=== PATIENT | female | born 1990 | race Caucasian/White ===

== ENCOUNTER → 2019-09-01 | Outpatient (CLI) | payer OTHER ==
[~2019-09-01] MED LIST: ISOVUE-370 76% 100ML VIAL (Q9967) As Ordered ONE
--- NOTE | 2019-09-01 15:47 | REP ---
Hysterosalpingogram: History: Primary infertility. Technique: The injection procedure is performed by the attending cigar inspector. 0.3 minutes of fluoroscopy time is reported. Fluoroscopic spot radiographs are obtained. Findings: A normal endometrial cavity is visualized. Uterus is tipped to the right. There is prompt symmetric fill of the isthmic and ampullary segments of the fallopian tubes bilaterally and prompt symmetric bilateral peritoneal spillage is observed. No filling defect is seen in the endometrium. Impression: Normal hysterosalpingogram. Bilateral tubal patency is documented. Electronically Signed by Topher Erwin MD 09/01/2019 08:08 P
== END ==
LOC: M RADPRO 11:23
PROVIDERS: ATTEND Specialist
DX: N97.9 Female infertility, unspecified (principal)
CPT/HCPCS: 58340; 74740; Q9967

== ENCOUNTER → 2021-04-01 | Outpatient (REF) | payer OTHER ==
[2021-04-05 12:44] LABS: GC DNA AMPLIFICATION NEGATIVE (NEGATIVE)
== END ==
LOC: M SFHCWAGY 10:47
PROVIDERS: ATTEND Specialist
DX: Z12.4 Encounter for screening for malignant neoplasm of cervix (principal); Z20.2 Contact with and (suspected) exposure to infections with a predominantly sexual mode of transmission; Z77.9 Other contact with and (suspected) exposures hazardous to health

== ENCOUNTER → 2021-04-04 | Outpatient (CLI) | payer OTHER | LOC: M WHC 16:15 | PROVIDERS: ATTEND Specialist | DX: Z53.9 Procedure and treatment not carried out, unspecified reason (principal) ==

== ENCOUNTER → 2021-07-05 | Outpatient (REF) | payer BC ==
[2021-07-05 11:55] LABS: HEMATOCRIT 41.8 % (36.0-47.0); HEMOGLOBIN 13.6 g/dl (12.0-15.5); MEAN CORPUSCULAR HEMOGLOBIN 32.1 pg (27.0-33.0); MEAN CORPUSCULAR HGB CONC 32.5 g/dl (32.0-36.5); MEAN CORPUSCULAR VOLUME 98.6 fl (80.0-96.0); PLATELET COUNT, AUTOMATED 289 10^3/uL (150-450); RED BLOOD COUNT 4.24 10^6/uL (4.00-5.40); WHITE BLOOD COUNT 6.2 10^3/uL (4.0-10.0)
[2021-07-05 12:32] LABS: PROLACTIN 12.3 NG/ML
[2021-07-05 12:44] LABS: HEPATITIS B SURFACE ANTIGEN NEGATIVE (NEGATIVE)
[2021-07-05 13:11] LABS: HEPATITIS C VIRUS ABY INDEX 0.1 INDEX (<0.8)
[2021-07-05 14:08] LABS: GC DNA AMPLIFICATION NEGATIVE (NEGATIVE)
[2021-07-06 04:01] LABS: BLOOD UREA NITROGEN 9 MG/DL (7-18); CARBON DIOXIDE LEVEL 27 mmol/L (20-29); CHLORIDE LEVEL 110 MEQ/L (98-107); CREATININE FOR GFR 0.71 MG/DL (0.55-1.30); GLOMERULAR FILTRATION RATE > 60.0 (>60); GLUCOSE, FASTING 93 MG/DL (70-100); POTASSIUM SERUM 4.3 MEQ/L (3.5-5.1); SODIUM LEVEL 141 MEQ/L (136-145)
[2021-07-06 04:02] LABS: ALBUMIN 3.9 GM/DL (3.2-5.2); ALT/SGPT 14 IU/L (0-32); BILIRUBIN,TOTAL 0.6 MG/DL (0.2-1.0); CALCIUM LEVEL 9.2 MG/DL (8.5-10.1)
[2021-07-15 13:36] LABS: TESTOSTERONE FREE (DIRECT) 2.6 PG/ML
[2021-07-15 13:39] LABS: HERPES ZOSTER, VARICELLA IgG 1036 index
[2021-07-15 13:41] LABS: ANTI-SMOOTH MUSCLE ANTIBODY 5 units
[2021-07-15 13:42] LABS: ANTI MULLERIAN HORMONE SEE SEPARATE REPORT
== END ==
LOC: M PLALAB 08:48
PROVIDERS: ATTEND Specialist
DX: Z20.2 Contact with and (suspected) exposure to infections with a predominantly sexual mode of transmission (principal); N92.6 Irregular menstruation, unspecified; Z13.220 Encounter for screening for lipoid disorders

== ENCOUNTER → 2021-08-29 | Outpatient (CLI) | payer BC | LOC: M WHC 07:00 | PROVIDERS: ATTEND Specialist | DX: Z12.31 Encounter for screening mammogram for malignant neoplasm of breast (principal); Z84.81 Family history of carrier of genetic disease ==

== ENCOUNTER → 2022-09-18 | Outpatient (REF) | payer BC ==
[2022-09-18 17:27] LABS: HEMATOCRIT 43.6 % (36.0-47.0); HEMOGLOBIN 14.3 g/dl (12.0-15.5); MEAN CORPUSCULAR HEMOGLOBIN 32.2 pg (27.0-33.0); MEAN CORPUSCULAR HGB CONC 32.8 g/dl (32.0-36.5); MEAN CORPUSCULAR VOLUME 98.2 fl (80.0-96.0); PLATELET COUNT, AUTOMATED 266 10^3/uL (150-450); RED BLOOD COUNT 4.44 10^6/uL (4.00-5.40); WHITE BLOOD COUNT 8.2 10^3/uL (4.0-10.0)
[2022-09-18 17:50] LABS: FREE T4 1.01 NG/DL (0.89-1.76); THYROID STIMULATING HORMONE 1.783 uIU/ML (0.55-4.78)
[2022-09-18 17:54] LABS: ALBUMIN 4.4 G/DL (3.2-5.2); ALKALINE PHOSPHATASE 68 U/L (46-116); ALT/SGPT 11 U/L (7.0-40); AST/SGOT 11 U/L (<34); BILIRUBIN,TOTAL 0.9 MG/DL (0.3-1.2); BLOOD UREA NITROGEN 22 MG/DL (9-23); CARBON DIOXIDE LEVEL 28 MMOL/L (20-31); CHLORIDE LEVEL 104 MMOL/L (98-107); CHOLESTEROL LEVEL 163 MG/DL (<200); CHOLESTEROL RISK RATIO 2.17 (<5); CREATININE FOR GFR 0.59 MG/DL (0.55-1.30); GLOMERULAR FILTRATION RATE > 60.0 (>60); GLUCOSE, FASTING 78 MG/DL (60-100); LDL CHOLESTEROL 74.2 MG/DL (<100); POTASSIUM SERUM 4.6 MMOL/L (3.5-5.1); SODIUM LEVEL 138 MMOL/L (136-145); TOTAL PROTEIN 7.4 G/DL (5.7-8.2); TRIGLYCERIDES LEVEL 69 MG/DL (<150)
== END ==
LOC: M SFHCCLAY 10:55
PROVIDERS: ATTEND Nurse Practitioner Family
DX: F41.8 Other specified anxiety disorders (principal); J30.2 Other seasonal allergic rhinitis; Z13.220 Encounter for screening for lipoid disorders; R74.8 Abnormal levels of other serum enzymes; N97.0 Female infertility associated with anovulation

== ENCOUNTER → 2022-10-15 | Outpatient (REF) | payer BC | LOC: M LABDRAWC 11:09 | PROVIDERS: ATTEND Obstetrics & Gynecology Reproductive Endocrinology | DX: Z32.00 Encounter for pregnancy test, result unknown (principal) ==

== ENCOUNTER → 2022-11-04 | Outpatient (REF) | payer BC | LOC: M SFHCWAGY 13:25 | PROVIDERS: ATTEND Specialist | DX: Z01.419 Encounter for gynecological examination (general) (routine) without abnormal findings (principal) | CPT/HCPCS: 87624; G0123 ==

== ENCOUNTER → 2022-11-04 | Outpatient (CLI) | payer BC | LOC: M WHC 09:07 | PROVIDERS: ATTEND Specialist | DX: Z12.31 Encounter for screening mammogram for malignant neoplasm of breast (principal); Z80.3 Family history of malignant neoplasm of breast ==

== ENCOUNTER → 2022-11-19 | Outpatient (CLI) | payer BC | LOC: M WHC 08:52 | PROVIDERS: ATTEND Specialist | DX: Z12.31 Encounter for screening mammogram for malignant neoplasm of breast (principal); Z80.3 Family history of malignant neoplasm of breast | CPT/HCPCS: 76642; 77065; G0279 ==

== ENCOUNTER → 2022-11-19 | Outpatient (CLI) | payer BC | LOC: M WHC 08:36 | PROVIDERS: ATTEND Obstetrics & Gynecology Reproductive Endocrinology | DX: Z31.83 Encounter for assisted reproductive fertility procedure cycle (principal) ==

== ENCOUNTER → 2022-11-19 | Outpatient (CLI) | payer BC ==
[2022-11-19 13:10] LABS: LUTEINIZING HORMONE 3.4 mIU/ML
[2022-11-19 13:11] LABS: ESTRADIOL 100.2 PG/ML
[2022-11-19 13:13] LABS: PROGESTERONE < 0.21 NG/ML
== END ==
LOC: M PLALAB 11:13
PROVIDERS: ATTEND Obstetrics & Gynecology Reproductive Endocrinology
DX: Z31.83 Encounter for assisted reproductive fertility procedure cycle (principal)

== ENCOUNTER → 2022-11-21 | Outpatient (CLI) | payer BC ==
[2022-11-21 10:06] LABS: ESTRADIOL 109.4 PG/ML; PROGESTERONE < 0.21 NG/ML
== END ==
LOC: M PLALAB 07:53
PROVIDERS: ATTEND Obstetrics & Gynecology Reproductive Endocrinology
DX: Z31.83 Encounter for assisted reproductive fertility procedure cycle (principal)

== ENCOUNTER → 2022-11-21 | Outpatient (CLI) | payer BC | LOC: M WHC 09:35 | PROVIDERS: ATTEND Obstetrics & Gynecology Reproductive Endocrinology | DX: Z31.83 Encounter for assisted reproductive fertility procedure cycle (principal) ==

== ENCOUNTER → 2022-11-26 | Outpatient (CLI) | payer BC ==
[2022-11-26 13:36] LABS: ESTRADIOL 125.6 PG/ML
[2022-11-26 13:37] LABS: PROGESTERONE 3.46 NG/ML
== END ==
LOC: M PLALAB 09:10
PROVIDERS: ATTEND Obstetrics & Gynecology Reproductive Endocrinology
DX: Z31.83 Encounter for assisted reproductive fertility procedure cycle (principal)

== ENCOUNTER → 2022-12-10 | Outpatient (REF) | payer BC ==
[2022-12-10 11:34] LABS: HCG, SERUM QUANTITATIVE < 2.6 MIU/ML (<4.2)
[2022-12-10 11:39] LABS: PROGESTERONE 13.39 NG/ML
== END ==
LOC: M LABDRAWC 10:56
PROVIDERS: ATTEND Obstetrics & Gynecology Reproductive Endocrinology
DX: Z32.00 Encounter for pregnancy test, result unknown (principal)

== ENCOUNTER → 2022-12-17 | Outpatient (CLI) | payer BC ==
[2022-12-17 11:33] LABS: HCG, SERUM QUANTITATIVE < 2.6 MIU/ML (<4.2)
[2022-12-17 11:36] LABS: THYROID STIMULATING HORMONE 1.243 uIU/ML (0.55-4.78)
[2022-12-17 11:37] LABS: ESTRADIOL 88.9 PG/ML; FOLLICLE STIMULATING HORMONE 3.5 mIU/ML; LUTEINIZING HORMONE 2.7 mIU/ML
[2022-12-17 11:38] LABS: PROGESTERONE < 0.21 NG/ML
== END ==
LOC: M LAB 10:21
PROVIDERS: ATTEND Obstetrics & Gynecology Reproductive Endocrinology
DX: Z31.83 Encounter for assisted reproductive fertility procedure cycle (principal)

== ENCOUNTER → 2022-12-17 | Outpatient (CLI) | payer BC | LOC: M WHC 09:27 | PROVIDERS: ATTEND Obstetrics & Gynecology Reproductive Endocrinology | DX: Z31.83 Encounter for assisted reproductive fertility procedure cycle (principal) ==

== ENCOUNTER → 2022-12-24 | Outpatient (CLI) | payer BC | LOC: M WHC 08:44 | PROVIDERS: ATTEND Obstetrics & Gynecology Reproductive Endocrinology | DX: N97.9 Female infertility, unspecified (principal) ==

== ENCOUNTER → 2022-12-24 | Outpatient (CLI) | payer BC ==
[2022-12-24 10:50] LABS: ESTRADIOL 291.4 PG/ML; LUTEINIZING HORMONE 38.8 mIU/ML; PROGESTERONE 1.9 NG/ML
== END ==
LOC: M PLALAB 08:48
PROVIDERS: ATTEND Obstetrics & Gynecology Reproductive Endocrinology
DX: N97.9 Female infertility, unspecified (principal)

== ENCOUNTER → 2022-12-26 | Outpatient (CLI) | payer BC ==
[2022-12-26 08:01] LABS: ESTRADIOL 24.4 PG/ML; PROGESTERONE 6.25 NG/ML
== END ==
LOC: M RAD 07:01
PROVIDERS: ATTEND Obstetrics & Gynecology Reproductive Endocrinology
DX: N97.9 Female infertility, unspecified (principal)

== ENCOUNTER → 2023-02-11 | Outpatient (CLI) | payer BC ==
[2023-02-11 10:20] LABS: FOLLICLE STIMULATING HORMONE 12.1 mIU/ML; LUTEINIZING HORMONE 4.9 mIU/ML
[2023-02-11 10:21] LABS: ESTRADIOL 56.8 PG/ML; PROGESTERONE 0.52 NG/ML
[2023-02-11 10:24] LABS: THYROID STIMULATING HORMONE 2.082 uIU/ML (0.55-4.78)
== END ==
LOC: M PLALAB 08:06
PROVIDERS: ATTEND Obstetrics & Gynecology Reproductive Endocrinology
DX: N97.9 Female infertility, unspecified (principal)

== ENCOUNTER → 2023-02-11 | Outpatient (CLI) | payer BC | LOC: M WHC 07:20 | PROVIDERS: ATTEND Obstetrics & Gynecology Reproductive Endocrinology | DX: N97.9 Female infertility, unspecified (principal) ==

== ENCOUNTER → 2023-02-17 | Outpatient (CLI) | payer BC ==
[2023-02-17 14:06] LABS: ESTRADIOL 109.3 PG/ML
[2023-02-17 14:07] LABS: PROGESTERONE 0.32 NG/ML
== END ==
LOC: M PLALAB 11:47
PROVIDERS: ATTEND Obstetrics & Gynecology Reproductive Endocrinology
DX: N97.9 Female infertility, unspecified (principal)

== ENCOUNTER → 2023-02-20 | Outpatient (REF) | payer BC ==
[2023-02-20 12:35] LABS: LUTEINIZING HORMONE 5.7 mIU/ML
[2023-02-20 12:36] LABS: ESTRADIOL 220.7 PG/ML
[2023-02-20 12:37] LABS: PROGESTERONE < 0.21 NG/ML
== END ==
LOC: M LABDRAWC 11:25
PROVIDERS: ATTEND Obstetrics & Gynecology Reproductive Endocrinology
DX: N97.9 Female infertility, unspecified (principal)

== ENCOUNTER → 2023-06-02 | Outpatient (REF) | payer BC ==
[2023-06-02 11:33] LABS: PROGESTERONE 20.86 NG/ML
== END ==
LOC: M LABDRAWC 10:43
PROVIDERS: ATTEND Obstetrics & Gynecology Reproductive Endocrinology
DX: Z31.49 Encounter for other procreative investigation and testing (principal)

== ENCOUNTER → 2023-06-11 | Outpatient (CLI) | payer BC ==
[2023-06-11 09:03] LABS: HCG, SERUM QUANTITATIVE 476.2 MIU/ML (<4.2)
[2023-06-11 09:05] LABS: ESTRADIOL 276.1 PG/ML
[2023-06-11 09:34] LABS: PROGESTERONE 57.58 NG/ML
== END ==
LOC: M LAB 08:12
PROVIDERS: ATTEND Obstetrics & Gynecology Reproductive Endocrinology
DX: Z32.01 Encounter for pregnancy test, result positive (principal)

== ENCOUNTER → 2023-06-18 | Outpatient (CLI) | payer BC ==
[2023-06-18 07:48] LABS: ESTRADIOL 317.7 PG/ML
[2023-06-18 07:49] LABS: PROGESTERONE 52.27 NG/ML
== END ==
LOC: M RAD 06:40
PROVIDERS: ATTEND Obstetrics & Gynecology Reproductive Endocrinology
DX: O09.00 Supervision of pregnancy with history of infertility, unspecified trimester (principal); Z3A.00 Weeks of gestation of pregnancy not specified

== ENCOUNTER → 2023-07-02 | Outpatient (CLI) | payer BC | LOC: M RAD 06:56 | PROVIDERS: ATTEND Obstetrics & Gynecology Reproductive Endocrinology | DX: O09.00 Supervision of pregnancy with history of infertility, unspecified trimester (principal); Z3A.01 Less than 8 weeks gestation of pregnancy ==

== ENCOUNTER → 2023-07-06 | Outpatient (CLI) | payer BC | LOC: M LAB 17:27 | PROVIDERS: ATTEND Specialist | DX: O03.9 Complete or unspecified spontaneous abortion without complication (principal) ==

== ENCOUNTER → 2023-07-14 | Outpatient (REF) | payer BC | LOC: M LABDRAWC 17:02 | PROVIDERS: ATTEND Obstetrics & Gynecology Reproductive Endocrinology | DX: O02.1 Missed abortion (principal) ==

== ENCOUNTER → 2023-07-27 | Outpatient (REF) | payer BC | LOC: M LABDRAWC 17:08 | PROVIDERS: ATTEND Obstetrics & Gynecology Reproductive Endocrinology | DX: Z32.01 Encounter for pregnancy test, result positive (principal) ==

== ENCOUNTER → 2023-08-03 | Outpatient (REF) | payer BC | LOC: M LABDRAWC 11:22 | PROVIDERS: ATTEND Obstetrics & Gynecology Reproductive Endocrinology | DX: O02.1 Missed abortion (principal) ==

== ENCOUNTER → 2023-08-10 | Outpatient (REF) | payer BC | LOC: M LAB REF 17:56 | PROVIDERS: ATTEND Surgery | DX: D17.21 Benign lipomatous neoplasm of skin and subcutaneous tissue of right arm (principal) ==

== ENCOUNTER → 2023-08-13 | Outpatient (REF) | payer BC ==
[2023-08-13 19:05] LABS: HCG, SERUM QUANTITATIVE < 2.6 MIU/ML (<4.2)
[2023-08-13 19:09] LABS: FOLLICLE STIMULATING HORMONE 7.8 mIU/ML; LUTEINIZING HORMONE 3.4 mIU/ML; PROGESTERONE 0.32 NG/ML; THYROID STIMULATING HORMONE 1.368 uIU/ML (0.55-4.78)
[2023-08-13 19:10] LABS: ESTRADIOL 32.5 PG/ML
== END ==
LOC: M LABDRAWC 17:45
PROVIDERS: ATTEND Obstetrics & Gynecology Reproductive Endocrinology
DX: Z31.83 Encounter for assisted reproductive fertility procedure cycle (principal)

== ENCOUNTER → 2023-08-18 | Outpatient (REF) | payer BC ==
[2023-08-18 11:56] LABS: LUTEINIZING HORMONE 4.2 mIU/ML
[2023-08-18 11:57] LABS: ESTRADIOL 122.4 PG/ML; PROGESTERONE < 0.21 NG/ML
== END ==
LOC: M LABDRAWC 11:16
PROVIDERS: ATTEND Obstetrics & Gynecology Reproductive Endocrinology
DX: Z31.83 Encounter for assisted reproductive fertility procedure cycle (principal)

== ENCOUNTER → 2023-08-20 | Outpatient (REF) | payer BC ==
[2023-08-20 12:31] LABS: LUTEINIZING HORMONE 14.1 mIU/ML
[2023-08-20 12:32] LABS: ESTRADIOL 32.8 PG/ML; PROGESTERONE < 0.21 NG/ML
== END ==
LOC: M LABDRAWC 11:10
PROVIDERS: ATTEND Obstetrics & Gynecology Reproductive Endocrinology
DX: Z31.83 Encounter for assisted reproductive fertility procedure cycle (principal)

== ENCOUNTER → 2023-08-24 | Outpatient (CLI) | payer BC ==
[2023-08-24 09:56] LABS: ESTRADIOL 207.4 PG/ML
[2023-08-24 09:57] LABS: LUTEINIZING HORMONE 3.6 mIU/ML
[2023-08-24 10:00] LABS: PROGESTERONE < 0.21 NG/ML
== END ==
LOC: M RAD 07:37
PROVIDERS: ATTEND Obstetrics & Gynecology Reproductive Endocrinology
DX: N97.9 Female infertility, unspecified (principal)

== ENCOUNTER → 2023-08-26 | Outpatient (CLI) | payer BC ==
[2023-08-26 12:14] LABS: ESTRADIOL 184.8 PG/ML; LUTEINIZING HORMONE 5.9 mIU/ML; PROGESTERONE < 0.21 NG/ML
== END ==
LOC: M RAD 11:09
PROVIDERS: ATTEND Obstetrics & Gynecology Reproductive Endocrinology
DX: Z31.83 Encounter for assisted reproductive fertility procedure cycle (principal)

== ENCOUNTER → 2023-09-03 | Outpatient (REF) | payer BC ==
[2023-09-03 11:19] LABS: ESTRADIOL 260.8 PG/ML
[2023-09-03 11:20] LABS: PROGESTERONE 36.79 NG/ML
== END ==
LOC: M LABDRAWC 11:01
PROVIDERS: ATTEND Obstetrics & Gynecology Reproductive Endocrinology
DX: Z31.49 Encounter for other procreative investigation and testing (principal)

== ENCOUNTER → 2023-09-10 | Outpatient (REF) | payer BC ==
[2023-09-10 11:49] LABS: HCG, SERUM QUANTITATIVE 3.9 MIU/ML (<4.2)
[2023-09-10 11:53] LABS: PROGESTERONE 8.5 NG/ML
== END ==
LOC: M LABDRAWC 11:15
PROVIDERS: ATTEND Obstetrics & Gynecology Reproductive Endocrinology
DX: Z32.00 Encounter for pregnancy test, result unknown (principal)

== ENCOUNTER → 2023-09-16 | Outpatient (CLI) | payer BC ==
[2023-09-16 17:11] LABS: HCG, SERUM QUANTITATIVE < 2.6 MIU/ML (<4.2)
[2023-09-16 17:15] LABS: PROGESTERONE < 0.21 NG/ML
[2023-09-16 17:17] LABS: FOLLICLE STIMULATING HORMONE 6.6 mIU/ML; THYROID STIMULATING HORMONE 1.014 uIU/ML (0.55-4.78)
[2023-09-16 17:18] LABS: ESTRADIOL 22.7 PG/ML
== END ==
LOC: M RAD 16:07
PROVIDERS: ATTEND Obstetrics & Gynecology Reproductive Endocrinology
DX: N97.9 Female infertility, unspecified (principal)

== ENCOUNTER → 2023-09-21 | Outpatient (CLI) | payer BC ==
[2023-09-21 10:52] LABS: ESTRADIOL 95.9 PG/ML; LUTEINIZING HORMONE 4.1 mIU/ML
[2023-09-21 10:53] LABS: PROGESTERONE < 0.21 NG/ML
== END ==
LOC: M PLALAB 07:21
PROVIDERS: ATTEND Obstetrics & Gynecology Reproductive Endocrinology
DX: Z31.83 Encounter for assisted reproductive fertility procedure cycle (principal)

== ENCOUNTER → 2023-09-21 | Outpatient (CLI) | payer BC | LOC: M WHC 07:19 | PROVIDERS: ATTEND Obstetrics & Gynecology Reproductive Endocrinology | DX: Z31.83 Encounter for assisted reproductive fertility procedure cycle (principal) ==

== ENCOUNTER → 2023-09-23 | Outpatient (CLI) | payer BC | LOC: M WHC 07:44 | PROVIDERS: ATTEND Obstetrics & Gynecology Reproductive Endocrinology | DX: Z31.83 Encounter for assisted reproductive fertility procedure cycle (principal) ==

== ENCOUNTER → 2023-09-23 | Outpatient (CLI) | payer BC ==
[2023-09-23 08:11] LABS: LUTEINIZING HORMONE 3.5 mIU/ML
[2023-09-23 08:12] LABS: ESTRADIOL 178.2 PG/ML; PROGESTERONE < 0.21 NG/ML
== END ==
LOC: M LAB 07:09
PROVIDERS: ATTEND Obstetrics & Gynecology Reproductive Endocrinology
DX: Z31.83 Encounter for assisted reproductive fertility procedure cycle (principal)

== ENCOUNTER → 2023-09-25 | Outpatient (CLI) | payer BC ==
[2023-09-25 08:39] LABS: ESTRADIOL 600.1 PG/ML; LUTEINIZING HORMONE 6.8 mIU/ML; PROGESTERONE 0.22 NG/ML
== END ==
LOC: M LAB 07:23
PROVIDERS: ATTEND Obstetrics & Gynecology Reproductive Endocrinology
DX: Z31.83 Encounter for assisted reproductive fertility procedure cycle (principal)

== ENCOUNTER → 2023-09-25 | Outpatient (CLI) | payer BC | LOC: M WHC 07:52 | PROVIDERS: ATTEND Obstetrics & Gynecology Reproductive Endocrinology | DX: Z31.83 Encounter for assisted reproductive fertility procedure cycle (principal) ==

== ENCOUNTER → 2023-10-06 | Outpatient (REF) | payer BC ==
[2023-10-06 13:03] LABS: ESTRADIOL 152.1 PG/ML
[2023-10-06 13:04] LABS: PROGESTERONE 9.12 NG/ML
== END ==
LOC: M LABDRAWC 11:30
PROVIDERS: ATTEND Obstetrics & Gynecology Reproductive Endocrinology
DX: Z31.49 Encounter for other procreative investigation and testing (principal)

== ENCOUNTER → 2023-10-16 | Outpatient (CLI) | payer BC ==
[2023-10-16 08:18] LABS: HCG, SERUM QUANTITATIVE < 2.6 MIU/ML (<4.2)
[2023-10-16 08:23] LABS: FOLLICLE STIMULATING HORMONE 12.6 mIU/ML; LUTEINIZING HORMONE 10.4 mIU/ML; PROGESTERONE 0.62 NG/ML; THYROID STIMULATING HORMONE 3.191 uIU/ML (0.55-4.78)
[2023-10-16 08:24] LABS: ESTRADIOL 54.9 PG/ML
== END ==
LOC: M RAD 06:45
PROVIDERS: ATTEND Obstetrics & Gynecology Reproductive Endocrinology
DX: N97.9 Female infertility, unspecified (principal)

== ENCOUNTER → 2023-10-20 | Outpatient (CLI) | payer BC ==
[2023-10-20 07:54] LABS: ESTRADIOL 110.8 PG/ML; LUTEINIZING HORMONE 4.5 mIU/ML
[2023-10-20 07:57] LABS: PROGESTERONE 0.55 NG/ML
== END ==
LOC: M LAB 06:22
PROVIDERS: ATTEND Obstetrics & Gynecology Reproductive Endocrinology
DX: Z31.83 Encounter for assisted reproductive fertility procedure cycle (principal)

== ENCOUNTER → 2023-10-20 | Outpatient (CLI) | payer BC | LOC: M WHC 06:51 | PROVIDERS: ATTEND Obstetrics & Gynecology Reproductive Endocrinology | DX: Z31.83 Encounter for assisted reproductive fertility procedure cycle (principal) ==

== ENCOUNTER → 2023-10-23 | Outpatient (CLI) | payer BC ==
[2023-10-23 07:51] LABS: LUTEINIZING HORMONE 4.2 mIU/ML; PROGESTERONE < 0.21 NG/ML; THYROID STIMULATING HORMONE 1.257 uIU/ML (0.55-4.78)
== END ==
LOC: M LAB 06:30
PROVIDERS: ATTEND Obstetrics & Gynecology Reproductive Endocrinology
DX: Z31.83 Encounter for assisted reproductive fertility procedure cycle (principal)

== ENCOUNTER → 2023-11-02 | Outpatient (CLI) | payer BC ==
[2023-11-02 11:02] LABS: ESTRADIOL 219.5 PG/ML; THYROID STIMULATING HORMONE 0.492 uIU/ML (0.55-4.78)
[2023-11-02 11:03] LABS: PROGESTERONE 10.77 NG/ML
== END ==
LOC: M LAB 09:59
PROVIDERS: ATTEND Obstetrics & Gynecology Reproductive Endocrinology
DX: Z31.49 Encounter for other procreative investigation and testing (principal)

== ENCOUNTER → 2023-11-06 | Outpatient (CLI) | payer BC | LOC: M LAB 07:30 | PROVIDERS: ATTEND Obstetrics & Gynecology Reproductive Endocrinology | DX: Z31.41 Encounter for fertility testing (principal) ==

== ENCOUNTER → 2024-01-28 | Outpatient (REF) | payer BC ==
[2024-01-28 12:47] LABS: ALBUMIN 3.8 G/DL (3.2-5.2); ALKALINE PHOSPHATASE 67 U/L (46-116); ALT/SGPT 17 U/L (7.0-40); AST/SGOT 11 U/L (<34); BLOOD UREA NITROGEN 11 MG/DL (9-23); CALCIUM LEVEL 9.2 MG/DL (8.5-10.1); CARBON DIOXIDE LEVEL 27 MMOL/L (20-31); CHLORIDE LEVEL 109 MMOL/L (98-107); CHOLESTEROL LEVEL 218 MG/DL (<200); CHOLESTEROL RISK RATIO 2.44 (<5); CREATININE FOR GFR 0.64 MG/DL (0.55-1.30); GLOMERULAR FILTRATION RATE > 60.0 (>60); GLUCOSE, FASTING 86 MG/DL (60-100); HDL CHOLESTEROL 89.1 MG/DL (>40); LDL CHOLESTEROL 114.9 MG/DL (<100); NON-HDL-C 128.9 MG/DL; POTASSIUM SERUM 4.6 MMOL/L (3.5-5.1); SODIUM LEVEL 142 MMOL/L (136-145); THYROID STIMULATING HORMONE 1.804 uIU/ML (0.55-4.78); TOTAL PROTEIN 6.4 G/DL (5.7-8.2); TRIGLYCERIDES LEVEL 70 MG/DL (<150)
[2024-01-28 12:48] LABS: FREE T4 1.08 NG/DL (0.89-1.76)
[2024-01-28 13:11] LABS: HEMOGLOBIN A1c 4.7 % (4.0-6.0)
== END ==
LOC: M SFHCCLAY 07:47
PROVIDERS: ATTEND Nurse Practitioner Family
DX: R74.8 Abnormal levels of other serum enzymes (principal); N92.6 Irregular menstruation, unspecified; F41.8 Other specified anxiety disorders

== ENCOUNTER → 2024-03-01 | Outpatient (CLI) | payer BC | LOC: M WHC 11:09 | PROVIDERS: ATTEND Specialist | DX: Z12.31 Encounter for screening mammogram for malignant neoplasm of breast (principal) ==

== ENCOUNTER → 2024-03-01 | Outpatient (REF) | payer BC ==
[2024-03-03 13:17] LABS: HPV APTIMA Not Detected (Not Detected)
== END ==
LOC: M SFHCWAGY 12:50
PROVIDERS: ATTEND Specialist
DX: Z01.419 Encounter for gynecological examination (general) (routine) without abnormal findings (principal)

== ENCOUNTER → 2024-03-28 | Outpatient (CLI) | payer BC ==
[2024-03-28 10:37] LABS: HCG, SERUM QUANTITATIVE < 2.6 MIU/ML (<4.2)
[2024-03-28 10:41] LABS: FOLLICLE STIMULATING HORMONE 11.3 mIU/ML; THYROID STIMULATING HORMONE 1.745 uIU/ML (0.55-4.78)
[2024-03-28 10:42] LABS: ESTRADIOL 36.5 PG/ML; PROGESTERONE 7.52 NG/ML
== END ==
LOC: M PLALAB 07:23
PROVIDERS: ATTEND Obstetrics & Gynecology Reproductive Endocrinology
DX: Z31.83 Encounter for assisted reproductive fertility procedure cycle (principal)

== ENCOUNTER → 2024-03-28 | Outpatient (CLI) | payer BC | LOC: M WHC 07:21 | PROVIDERS: ATTEND Obstetrics & Gynecology Reproductive Endocrinology | DX: Z31.83 Encounter for assisted reproductive fertility procedure cycle (principal); R93.89 Abnormal findings on diagnostic imaging of other specified body structures ==

== ENCOUNTER → 2024-04-12 | Outpatient (CLI) | payer BC ==
[2024-04-12 08:58] LABS: HCG, SERUM QUANTITATIVE < 2.6 MIU/ML (<4.2)
[2024-04-12 09:01] LABS: FOLLICLE STIMULATING HORMONE 7.8 mIU/ML; LUTEINIZING HORMONE 5.3 mIU/ML; THYROID STIMULATING HORMONE 2.549 uIU/ML (0.55-4.78)
[2024-04-12 09:02] LABS: ESTRADIOL 53.3 PG/ML
== END ==
LOC: M RAD 07:46
PROVIDERS: ATTEND Obstetrics & Gynecology Reproductive Endocrinology
DX: Z31.83 Encounter for assisted reproductive fertility procedure cycle (principal)

== ENCOUNTER → 2024-05-11 | Outpatient (REF) | payer BC ==
[2024-05-11 12:03] LABS: ALBUMIN 3.6 G/DL (3.2-5.2); ALKALINE PHOSPHATASE 59 U/L (35-104); ALT/SGPT 10 U/L (7.0-40); AST/SGOT < 8 U/L (<34); BILIRUBIN,TOTAL 0.5 MG/DL (0.3-1.2); BLOOD UREA NITROGEN 13 MG/DL (9-23); CALCIUM LEVEL 9.5 MG/DL (8.5-10.1); CARBON DIOXIDE LEVEL 27 MMOL/L (20-31); CHLORIDE LEVEL 110 MMOL/L (98-107); CREATININE FOR GFR 0.54 MG/DL (0.55-1.30); GLOMERULAR FILTRATION RATE > 60.0 (>60); GLUCOSE, FASTING 79 MG/DL (60-100); MAGNESIUM LEVEL 2.2 MG/DL (1.8-2.4); POTASSIUM SERUM 4.1 MMOL/L (3.5-5.1); SODIUM LEVEL 142 MMOL/L (136-145)
[2024-05-11 12:04] LABS: T UPTAKE 38.4 % (22.5-37.0); THYROXINE (T4) 7.9 UG/DL (4.5-10.9)
[2024-05-11 12:05] LABS: PROGESTERONE 1.27 NG/ML; THYROID STIMULATING HORMONE 2.267 uIU/ML (0.55-4.78); TOTAL 25(OH) VITAMIN D 31.7 NG/ML (20.0-100.0)
[2024-05-11 12:06] LABS: BASO # 0.1 10^3/uL (0.0-0.2); CORTISOL AM 1.3 UG/DL (4.3-22.4); EOS # 0.1 10^3/uL (0.0-0.5); HEMATOCRIT 44.2 % (36.0-47.0); HEMOGLOBIN 14.6 g/dl (12.0-15.5); LYMPH # 3.2 10^3/uL (1.5-5.0); LYMPH % 39.4 % (24.0-44.0); MEAN CORPUSCULAR HEMOGLOBIN 32.7 pg (27.0-33.0); MEAN CORPUSCULAR VOLUME 99.1 fl (80.0-96.0); MONO # 0.6 10^3/uL (0.0-0.8); MONO % 7.7 % (2.0-8.0); NEUTROPHILS # 4.1 10^3/uL (1.5-8.5); NEUTROPHILS % 50.5 % (36.0-66.0); PLATELET COUNT, AUTOMATED 355 10^3/uL (150-450); RED BLOOD COUNT 4.46 10^6/uL (4.00-5.40); WHITE BLOOD COUNT 8.2 10^3/uL (4.0-10.0)
[2024-05-11 13:08] LABS: HEMOGLOBIN A1c 4.8 % (4.0-6.0)
[2024-05-16 00:11] LABS: ACETONE, URINE None Detected; ETHANOL, URINE None Detected; ISOPROPANOL, URINE None Detected; METHANOL, URINE None Detected
[2024-05-16 17:28] LABS: TESTOSTERONE FREE (DIRECT) 0.4 pg/mL (0.1-6.4); TESTOSTERONE TOTAL FOR T&D 9 ng/dL (2-45)
[2024-05-17 23:53] LABS: ESTROGENS TOTAL 125 pg/mL
== END ==
LOC: M LABDRAWC 07:39
PROVIDERS: ATTEND Nurse Practitioner Psychiatric/Mental Health
DX: F43.10 Post-traumatic stress disorder, unspecified (principal)

== ENCOUNTER → 2024-05-13 | Outpatient (REF) | payer BC | LOC: M SFHCCLAY 07:54 | PROVIDERS: ATTEND Physician Assistant | DX: R79.89 Other specified abnormal findings of blood chemistry (principal) ==

== ENCOUNTER → 2024-06-10 | Outpatient (REF) | payer BC ==
[2024-06-10 12:23] LABS: HCG, SERUM QUANTITATIVE < 2.6 MIU/ML (<4.2)
[2024-06-10 12:27] LABS: THYROID STIMULATING HORMONE 2.163 uIU/ML (0.55-4.78)
[2024-06-10 12:28] LABS: ESTRADIOL 37.3 PG/ML; LUTEINIZING HORMONE 3.4 mIU/ML; PROGESTERONE 0.47 NG/ML
== END ==
LOC: M LABDRAWC 11:04
PROVIDERS: ATTEND Obstetrics & Gynecology Reproductive Endocrinology
DX: E28.9 Ovarian dysfunction, unspecified (principal)

== ENCOUNTER → 2024-06-17 | Outpatient (CLI) | payer BC ==
[2024-06-17 16:52] LABS: ESTRADIOL 151.8 PG/ML; LUTEINIZING HORMONE 2.5 mIU/ML; PROGESTERONE < 0.21 NG/ML
== END ==
LOC: M LAB 15:57
PROVIDERS: ATTEND Obstetrics & Gynecology Reproductive Endocrinology
DX: N97.9 Female infertility, unspecified (principal)

== ENCOUNTER → 2024-06-20 | Outpatient (REF) | payer BC ==
[2024-06-20 18:04] LABS: ESTRADIOL 567.9 PG/ML; LUTEINIZING HORMONE 12.6 mIU/ML
[2024-06-20 18:05] LABS: PROGESTERONE < 0.21 NG/ML
== END ==
LOC: M LABDRAWC 16:33
PROVIDERS: ATTEND Obstetrics & Gynecology Reproductive Endocrinology
DX: Z31.83 Encounter for assisted reproductive fertility procedure cycle (principal)

== ENCOUNTER → 2024-06-21 | Outpatient (CLI) | payer BC ==
[2024-06-21 11:47] LABS: LUTEINIZING HORMONE 61.8 mIU/ML; PROGESTERONE 0.8 NG/ML
[2024-06-21 11:48] LABS: ESTRADIOL 299.3 PG/ML
== END ==
LOC: M RAD 10:30
PROVIDERS: ATTEND Obstetrics & Gynecology Reproductive Endocrinology
DX: Z31.83 Encounter for assisted reproductive fertility procedure cycle (principal)

== ENCOUNTER → 2024-06-28 | Outpatient (REF) | payer BC ==
[2024-06-28 12:17] LABS: ESTRADIOL 260.9 PG/ML; PROGESTERONE 21.34 NG/ML
== END ==
LOC: M LABDRAWC 11:44
PROVIDERS: ATTEND Obstetrics & Gynecology Reproductive Endocrinology
DX: Z31.49 Encounter for other procreative investigation and testing (principal)

== ENCOUNTER → 2024-10-03 | Outpatient (REF) | payer BC | LOC: M LABDRAWC 17:30 | PROVIDERS: ATTEND Obstetrics & Gynecology Reproductive Endocrinology | DX: Z31.41 Encounter for fertility testing (principal) ==

== ENCOUNTER → 2024-10-12 | Outpatient (REF) | payer BC ==
[2024-10-12 19:00] LABS: ESTRADIOL 148.3 PG/ML
[2024-10-12 19:01] LABS: LUTEINIZING HORMONE 3.7 mIU/ML; PROGESTERONE 0.78 NG/ML
== END ==
LOC: M LABDRAWC 17:20
PROVIDERS: ATTEND Obstetrics & Gynecology Reproductive Endocrinology
DX: Z31.83 Encounter for assisted reproductive fertility procedure cycle (principal)

== ENCOUNTER → 2024-10-22 | Outpatient (CLI) | payer BC, OTHER ==
[2024-10-22 16:48] LABS: PROGESTERONE 20.06 NG/ML
== END ==
LOC: M LAB 15:14
PROVIDERS: ATTEND Obstetrics & Gynecology Reproductive Endocrinology
DX: Z31.49 Encounter for other procreative investigation and testing (principal)

== ENCOUNTER → 2025-04-21 | Outpatient (CLI) | payer OTHER ==
[2025-04-24 23:47] LABS: CARDIOLIPIN IGA ANTIBODY < 2.0 APL-U/mL (<20.0); CARDIOLIPIN IGG ANTIBODY < 2.0 GPL-U/mL (<20.0); CARDIOLIPIN IGM ANTIBODY < 2.0 MPL-U/mL (<20.0)
[2025-04-26 07:13] LABS: BETA-2 GLYCOPROTEIN I ABY IGA < 2.0 U/mL (<20.0); BETA-2 GLYCOPROTEIN I ABY IGG < 2.0 U/mL (<20.0); BETA-2 GLYCOPROTEIN I ABY IGM < 2.0 U/mL (<20.0)
[2025-04-26 10:13] LABS: ANTI DS-DNA AB Positive (Negative)
[2025-04-26 10:39] LABS: ANTI DS-DNA TITER 1:20 titer (<1:10)
== END ==
LOC: M PLALAB 10:06
PROVIDERS: ATTEND Specialist
DX: Z01.419 Encounter for gynecological examination (general) (routine) without abnormal findings (principal); M35.9 Systemic involvement of connective tissue, unspecified

== ENCOUNTER → 2025-04-21 | Outpatient (CLI) | payer OTHER | LOC: M WHC 08:29 | PROVIDERS: ATTEND Specialist | DX: Z12.31 Encounter for screening mammogram for malignant neoplasm of breast (principal); R92.343 Mammographic extreme density, bilateral breasts ==

== ENCOUNTER → 2025-04-25 | Outpatient (CLI) | payer OTHER | LOC: M CLY 10:01 | PROVIDERS: ATTEND Physician Assistant | DX: R07.89 Other chest pain (principal) ==

== ENCOUNTER → 2025-05-10 | Outpatient (CLI) | payer OTHER | LOC: M WHC 14:17 | PROVIDERS: ATTEND Specialist | DX: R92.2 Inconclusive mammogram (principal); R92.343 Mammographic extreme density, bilateral breasts | CPT/HCPCS: 77066; G0279 ==